=== PATIENT | female | born 1990 | race Caucasian/White ===

== ENCOUNTER → 2018-02-06 11:27 | Outpatient (CLI) | payer MEDICAID ==
[2011-05-11 05:44] VITALS: BMI 45.6
[~2018-02-06 11:27] MED LIST: ACETAMINOPHEN500 M1 PO; CELEXA20 MG PO; IBUPROFEN800 MG PO; PERCOCET 7.5/321 TAB PO
[2018-03-21 12:57] VITALS: BMI 49.0
== END | disposition home or self-care (01) ==
LOC: D.LDO 11:27
DX: O26.893 Other specified pregnancy related conditions, third trimester (principal); Z3A.33 33 weeks gestation of pregnancy; R42 Dizziness and giddiness; R06.02 Shortness of breath; R61 Generalized hyperhidrosis

== ENCOUNTER → 2018-02-09 20:08 | Outpatient (CLI) | payer MEDICAID ==
[2011-05-11 05:44] VITALS: BMI 45.6
[2018-02-09 21:11] LABS: APPEARANCE CLEAR (CLEAR); BILIRUBIN NEGATIVE (NEGATIVE); COLOR YELLOW (YELLOW); GLUCOSE NEGATIVE (NEGATIVE); KETONE NEGATIVE (NEGATIVE); NITRITE NEGATIVE (NEGATIVE); PROTEIN NEGATIVE (NEGATIVE); UROBILINOGEN NORMAL (NORMAL)
[2018-03-21 12:57] VITALS: BMI 49.0
== END | disposition home or self-care (01) ==
LOC: D.LDO 20:08
PROVIDERS: Obstetrics & Gynecology
DX: O26.893 Other specified pregnancy related conditions, third trimester (principal); Z3A.33 33 weeks gestation of pregnancy

== ENCOUNTER → 2018-02-26 17:39 | Outpatient (CLI) | payer MEDICAID ==
[2011-05-11 05:44] VITALS: BMI 45.6
[2018-03-21 12:57] VITALS: BMI 49.0
== END | disposition home or self-care (01) ==
LOC: D.LDO 17:39
DX: O14.93 Unspecified pre-eclampsia, third trimester (principal); Z3A.36 36 weeks gestation of pregnancy

== ENCOUNTER → 2018-03-05 13:30 | Outpatient (CLI) | payer MEDICAID ==
[2011-05-11 05:44] VITALS: BMI 45.6
[2018-03-21 12:57] VITALS: BMI 49.0
== END | disposition home or self-care (01) ==
LOC: D.LDO 13:30
DX: O14.93 Unspecified pre-eclampsia, third trimester (principal); Z3A.37 37 weeks gestation of pregnancy

== ENCOUNTER 2018-03-21 05:19 | Inpatient (IN) | payer MEDICAID ==
[2018-03-20 09:38] LABS: HEMATOCRIT 35.2 % (36.0-48.0); HEMOGLOBIN 11.6 g/dL (12-16); MCH 29.6 pg (26.0-34.0); MCV 89.8 fL (80.0-100.0); MEAN PLATELET VOLUME 11.5 fL (7.4-10.4); RBC 3.92 10x6/uL (4.00-5.40); RDW 14.1 % (11.5-14.5)
[2018-03-21] VITALS (11 sets, daily range): BP systolic 110–147; BP diastolic 52–86; Ht 167.6 cm; Wt 137.9 kg
[~2018-03-21] VITALS: Ht 167.6 cm; Wt 137.9 kg
--- NOTE | ~2018-03-21 | OP ---
PATIENT NAME: DEJA EVERETT MEDICAL RECORD: [id number] :89 LOCATION:[facility]1218 ADMISSION DATE:03/21/18 SURGEON: WILFRIDO HERNANDEZ MD DATE OF OPERATION: 03/21/2018 PREOPERATIVE DIAGNOSES: 1. at 39 weeks' gestation. 2. History of prior section. POSTOPERATIVE DIAGNOSES: 1. at 39 weeks' gestation. 2. Mother delivered at term. PROCEDURE: Repeat low transverse section. SURGEON: Wilfrido Hernandez MD ANESTHESIOLOGIST: Dr. Perez. ANESTHETIC: Spinal. FINDINGS: Viable female , vertex presentation, nuchal cord times 1 reduced. Apgars 9 and 9, weight 7 pounds 13 ounces. Unremarkable tubes, uterus and ovaries. SPECIMEN REMOVED: Placenta. SPECIMEN DISPOSITION: Discarded. ESTIMATED BLOOD LOSS: 800 cc. FLUIDS: 2200 cc of lactated Ringer's. URINE OUTPUT: 600 cc of clear urine. COMPLICATIONS: None. DRAINS: Velazquez to gravity. INDICATIONS: The patient is a 27-year-old multiparous female with prior section. The patient desires repeat. The patient has been given informed consent and understands all risks and benefits. DESCRIPTION OF PROCEDURE: After informed consent was assured, the patient was taken to the operating room, anesthetic was obtained. The patient is prepped and draped and timeout performed. Assessment of the anesthetic found to be adequate. An incision was made over the old scar, carried down to the underlying layer of the fascia, which was opened in the midline and extended laterally. Rectus bellies were dissected free superiorly and inferiorly and the rectus belly in the midline. The peritoneum was entered sharply and the peritoneal opening extended with good visualization of the bladder. The DeLee all-purpose retractor was inserted and bladder flap developed. The bladder blade was now reinserted and low transverse hysterotomy was performed. The was delivered on to the abdomen atraumatically after rupture of the membranes. The cord was doubly clamped and cut and the infant was passed to the OPERATIVE REPORT [id number] DEJA EVERETT awaiting attendant. Placenta was delivered via Crede maneuver. Uterus was exteriorized, cleared of all clot and debris and then returned to the abdomen for the close. Using ring forceps, the lower aspect of the incision was elevated and it is now closed in a running locked fashion with chromic stitch. Bleeding vessels encountered inferior to the hysterotomy and it was grasped with an Allis clamp, elevated and a free tie used to secure this. Pelvis was irrigated and the uterine hysterotomy and lower segment inspected and adequate hemostasis was found. The rectus bellies were reapproximated in the midline with a loose chromic stitch. Fascia was now closed with looped PDS. Subcutaneous tissues inspected. Bleeding vessels cauterized, and the skin was now closed with 3-0 Monocryl on a Paras needle. Sterile dressing is applied. Sponge, lap, and needle count was correct times 2 at the close of this procedure. The patient will be taken to the recovery room and then had care on labor and delivery. TRANSINT:[id number] Voice Confirmation ID: [id number] DOCUMENT ID: [id number] WILFRIDO HERNANDEZ MD at 1233 CC: [id number] DICTATION DATE: 03/21/18 09 PIG MACHINE SUPERVISOR: 03/21/18 0934 ADM IN [facility] [address] [id number]
--- NOTE | ~2018-03-21 | DS ---
PATIENT:DEJA EVERETT :89 MEDICAL RECORD: [id number] DISCHARGE SUMMARY ADMISSION DATE: 03/21/18 DISCHARGE DATE: 03/23/18 DATE OF ADMISSION: 03/21/2018 DATE OF DISCHARGE: 03/23/2018 ADMISSION DIAGNOSES: 1. at term. 2. History of section. DISCHARGE DIAGNOSES: 1. Mother delivered at term. 2. History of section. PROCEDURE PERFORMED: Repeat low transverse section. ATTENDING: Lee Hernandez MD HISTORY OF PRESENT ILLNESS: See the H&P in the chart. SUMMARY OF HOSPITALIZATION: The patient was admitted to the hospital and underwent procedure without incident. In the period, she has done well. She was tolerating regular diet and voiding on the day of surgery. At the time of discharge, the incision was clean, dry, and intact with the patient having adequate pain control with Percocet and Toradol. The patient will be discharged home with 7.5 Percocet and 800 mg Motrin for her pain management. I have asked her to follow up in clinic in 2 weeks. The patient has had history of depression and she and I have discussed her concerns. I will prescribe for her Celexa 20 mg to start this week. At this time, she has no suicidal or homicidal intent or ideation. She will contact the office if she is to develop severe depression. TRANSINT:[id number] Voice Confirmation ID: [id number] DOCUMENT ID: [id number] LEE HERNANDEZ MD at 1604 CC: [id number] DICTATION DATE: 03/23/18 1250 [employer]UGBOAT OPERATOR: 03/23/18 1329 DIS IN 03/23/18 [facility] [address] [id number]
--- NOTE | ~2018-03-21 | DS ---
PATIENT:DEJA EVERETT :89 MEDICAL RECORD: [id number] DISCHARGE SUMMARY ADMISSION DATE: 03/21/18 DISCHARGE DATE: DATE OF ADMISSION: 03/21/2018. DATE OF DISCHARGE: 03/21/2018. ADMISSION DIAGNOSIS: , undelivered at term. DISCHARGE DIAGNOSIS: Mother delivered at term. PROCEDURE: Induction of labor with vaginal delivery. HISTORY OF PRESENT ILLNESS AND INDICATION FOR HOSPITALIZATION: See the H&P in the chart. SUMMARY OF HOSPITALIZATION: The patient was admitted to the hospital and underwent induction of labor without incident. The patient went on to deliver vaginally at the time of discharge. Reports minimal to moderate lochia. The patient is having intense afterpains and is requesting medication to be discharged with. I have prescribed Tylenol No. 4 to be taken 1 every 6-8 hours as needed for the afterpains. I have also recommended she use ibuprofen. The patient has been given the standard precautions and will follow up in 6 weeks at [facility]. TRANSINT:[id number] Voice Confirmation ID: [id number] DOCUMENT ID: [id number] LEE HERNANDEZ MD at 1233 CC: [id number] DICTATION DATE: 03/21/18 0731 HEALTHCARE MANAGEMENT: 03/21/18 1317 ADM IN [id number] [place] [address]
[2018-03-21] MEDS ORDERED: ACETAMINOPHEN500 M1 PO (06:16)
[2018-03-21 07:32] LABS: RAPID PLASMA REAGIN Non Reactive (Non Reactive)
[2018-03-22 00:14] VITALS: BP 122/64
[2018-03-22 03:25] VITALS: BP 149/70
[2018-03-22 07:25] VITALS: BP 129/54
[2018-03-22 12:30] VITALS: BP 118/62
[2018-03-22 20:09] VITALS: BP 126/68
[2018-03-23 00:14] VITALS: BP 122/59
[2018-03-23 07:40] VITALS: BP 138/72
[2018-03-23] MEDS ORDERED: PERCOCET 7.5/321 TAB PO (12:52)
[2018-03-23] MEDS ORDERED: IBUPROFEN800 MG PO (12:54)
[2018-03-23] MEDS ORDERED: CELEXA20 MG PO (12:55)
== END 2018-03-23 15:25 | disposition home or self-care (01) | DRG 766 ==
LOC: D.LD 05:19 → D.WS 05:19 → D.LD 07:30 → D.WS 09:52 → D.LD 12:00 → D.SDCHOLD 12:00 → D.WS 03-23 15:25
PROVIDERS: Obstetrics & Gynecology
PROC: 10D00Z1 Extraction of Products of Conception, Low, Open Approach (ICD-10-PCS; principal; 2018-03-21 07:30)
DX: O34.211 Maternal care for low transverse scar from previous cesarean delivery (principal); O13.4 Gestational [pregnancy-induced] hypertension without significant proteinuria, complicating childbirth; Z3A.39 39 weeks gestation of pregnancy; Z37.0 Single live birth; O99.334 Smoking (tobacco) complicating childbirth; O69.81X0 Labor and delivery complicated by cord around neck, without compression, not applicable or unspecified